=== PATIENT | female | born 1970 | race Hispanic/Latino ===

== ENCOUNTER 2018-12-05 18:15 | Emergency (ER) | payer BC ==
[~2018-12-05] VITALS: Ht 162.6 cm; Wt 76.2 kg
--- NOTE | 2018-12-05 19:28 | NUR ---
ER MD TO TRIAGE FOR INITIAL EVAL
[2018-12-05] MEDS ORDERED: ORPHENADRINE CITRATE 30 MG/ML VIAL IM ONE (19:30)
[2018-12-05] MEDS ORDERED: ORPHENADRINE CITRATE 30 MG/ML VIAL ONE (19:34)
[2018-12-05] MEDS ORDERED: KETOROLAC TROMETHAMINE 60 MG/2 ML VIAL IM ONE (19:45)
--- NOTE | 2018-12-05 20:26 | Diagnostic Imaging Report ---
CT BRAIN WO HISTORY: Pressure in back of head COMPARISON: None. TECHNIQUE: Noncontrast axial scans were obtained from skull base to the vertex. Coronal and sagittal reconstructions obtained from the axial data. One or more of the following dose reduction techniques were used: Automated exposure control, adjustment of the mA and/or kV according to patient size, and/or utilization of iterative reconstruction technique. DISCUSSION: Scalp/Skull: Unremarkable. Brain sulci: Appropriate for patient's age. Ventricles: Normal in size and configuration. No hydrocephalus. Extra-axial spaces: No masses or fluid collections. Minimal carotid siphon calcifications are present. Parenchyma: No abnormal densities. No mass, hemorrhage, or large vascular territory acute infarct. Dural sinuses: No abnormal densities. Sellar/Suprasellar region: Intact. Skull base: Intact. Incidental findings: Subcentimeter subcutaneous hyperdensity in the left zygomatic region may be a foreign body. IMPRESSION: No acute intracranial abnormalities. Signed by: Dr. Jean Castro M.D. on 12/05/2018 8:23 PM
== END 2018-12-05 21:10 | disposition home or self-care (01) ==
LOC: ER 18:15
DX: G44.209 Tension-type headache, unspecified, not intractable (principal); E03.9 Hypothyroidism, unspecified
CPT/HCPCS: 70450; 99283; J1885; J2360